=== PATIENT | female | born 1975 | race Caucasian/White ===

== ENCOUNTER 2023-09-12 19:45 | Emergency (ER) | payer OTHER ==
[2023-09-12 19:53] VITALS: RESP 18; BMI 24.1
[2023-09-12] MEDS ORDERED: SODIUM CHLORIDE 0.9% 500 ML INFUS.BAG IV ONE (20:55)
[2023-09-12] MEDS ORDERED: ACETAMINOPHEN 1000 MG/100 ML BAG IVPB ONE (20:55)
[2023-09-12] MEDS ORDERED: ONDANSETRON 4 MG/2 ML VIAL IVPUSH ONE (20:55)
[2023-09-12] MEDS ORDERED: ACETAMINOPHEN INJECTION 100 ML IVPB ONE (20:59)
[2023-09-12] MEDS ORDERED: ONDANSETRON 4 MG/2 ML VIAL ONE (20:59)
[2023-09-12 21:01] LABS: BASO % 0.4 % (0-2.0); EOS % 0.1 % (0-4.5); HEMATOCRIT 45.6 % (32.4-45.2); HEMOGLOBIN 15.6 GM/dL (10.7-15.3); LYMPH % 14.5 % (8-40); MCH 32.7 pg (25.7-33.7); MCHC 34.1 g/dl (32.0-36.0); MEAN CELL VOLUME 95.8 fl (80-96); MEAN PLT VOLUME 6.7 fl (7.5-11.1); MONO % 8.5 % (3.8-10.2); NEUT % 76.5 % (42.8-82.8); PLATELET COUNT 370 10^3/uL (134-434); RBC 4.76 M/mm3 (3.60-5.2); RDW 13.5 % (11.6-15.6); WHITE BLOOD COUNT 7.1 K/mm3 (4.0-10.0)
[2023-09-12 21:19] LABS: POTASSIUM 3.5 mmol/L (3.5-5.1)
[2023-09-12 21:20] LABS: CALCIUM 8.8 mg/dL (8.5-10.1)
[2023-09-12 21:22] LABS: ALBUMIN 3.7 g/dl (3.4-5.0); BLOOD UREA NITROGEN 7.2 mg/dL (7-18); MAGNESIUM 1.8 mg/dL (1.8-2.4)
[2023-09-12 21:25] LABS: CREATININE 0.6 mg/dL (0.55-1.3); PHOSPHOROUS 2.1 mg/dL (2.5-4.9)
[2023-09-12 21:26] LABS: BILIRUBIN,TOTAL 0.7 mg/dL (0.2-1); TOT PROT 8.1 g/dl (6.4-8.2)
[2023-09-12] MEDS ORDERED: NAPH,MB-DB/K PH,MBDB POWDER PACKET PO ONE (21:43)
[2023-09-12 22:36] VITALS: BP 184/89; PULSE 72; TEMP 97.8
[2023-09-12] MEDS ORDERED: BUPRENORPHINE/NALOXONE 8 MG/2 MG FILM PACKET SL ONE (23:15)
[2023-09-12] MEDS ORDERED: BUPRENORPHINE/NALOXONE 8 MG/2 MG FILM PACKET ONE (23:16)
== END 2023-09-13 01:10 | disposition home or self-care (01) ==
LOC: JER 19:45
PROC: 3E033NZ Introduction of Analgesics, Hypnotics, Sedatives into Peripheral Vein, Percutaneous Approach (ICD-10-PCS; principal; 2023-09-12)
PROC: 3E033GC Introduction of Other Therapeutic Substance into Peripheral Vein, Percutaneous Approach (ICD-10-PCS; 2023-09-12)
DX: M79.604 Pain in right leg (principal); M79.605 Pain in left leg; R06.02 Shortness of breath; R07.9 Chest pain, unspecified; I83.813 Varicose veins of bilateral lower extremities with pain; F11.23 Opioid dependence with withdrawal; Z20.822 Contact with and (suspected) exposure to COVID-19
CPT/HCPCS: 0241U-QW; 36415; 71045-TC-FY; 80053; 83735; 84100; 84484; 84703; 85025; 93005; 93010; 99285-25

== ENCOUNTER 2023-09-13 08:43 | Inpatient (IN) | payer OTHER ==
[2023-09-13] MEDS ORDERED: SODIUM CHLORIDE 0.9% 500 ML INFUS.BAG IV ONE (09:06)
[2023-09-13] MEDS ORDERED: ONDANSETRON 4 MG/2 ML VIAL IVPUSH ONE (09:06)
[2023-09-13] MEDS ORDERED: ACETAMINOPHEN 1000 MG/100 ML BAG IVPB ONE (09:06)
[2023-09-13] MEDS ORDERED: ACETAMINOPHEN INJECTION 100 ML IVPB ONE (09:12)
[2023-09-13] MEDS ORDERED: ONDANSETRON 4 MG/2 ML VIAL ONE (09:12)
[2023-09-13] MEDS ORDERED: BUPRENORPHINE/NALOXONE 8 MG/2 MG FILM PACKET SL ONE (09:21)
[2023-09-13 09:23] VITALS: BMI 25.0
[2023-09-13] MEDS ORDERED: BUPRENORPHINE/NALOXONE 8 MG/2 MG FILM PACKET ONE ×2 (09:32→15:21)
[2023-09-13 09:47] LABS: INR 1.05 (0.83-1.09); PROTHROMBIN TIME (PATIENT) 12.2 SEC (9.7-13.0)
[2023-09-13 09:48] LABS: BASO % 0.2 % (0-2.0); HEMATOCRIT 48.2 % (32.4-45.2); HEMOGLOBIN 16.6 GM/dL (10.7-15.3); LYMPH % 10.6 % (8-40); MCH 33.1 pg (25.7-33.7); MCHC 34.5 g/dl (32.0-36.0); MEAN CELL VOLUME 96.2 fl (80-96); MONO % 6.3 % (3.8-10.2); NEUT % 82.9 % (42.8-82.8); PLATELET COUNT 388 10^3/uL (134-434); RBC 5.01 M/mm3 (3.60-5.2); RDW 13.3 % (11.6-15.6); WHITE BLOOD COUNT 8.1 K/mm3 (4.0-10.0)
[2023-09-13 09:49] LABS: ACTIVATED PTT 30.5 SECONDS (25.2-36.5)
[2023-09-13 09:56] LABS: POTASSIUM 3.9 mmol/L (3.5-5.1)
[2023-09-13 09:58] LABS: BLOOD UREA NITROGEN 5.3 mg/dL (7-18); MAGNESIUM 1.6 mg/dL (1.8-2.4)
[2023-09-13 10:02] LABS: CREATININE 0.5 mg/dL (0.55-1.3)
[2023-09-13 10:05] LABS: BILIRUBIN,TOTAL 1.1 mg/dL (0.2-1); CALCIUM 10.2 mg/dL (8.5-10.1); TOT PROT 8.8 g/dl (6.4-8.2)
[2023-09-13] MEDS ORDERED: LORazepam 2 MG/ML SDV VIAL IVPUSH ONE (10:19)
[2023-09-13] MEDS ORDERED: chlordiazePOXIDE HCL 25 MG CAPSULE PO ONE (11:36)
[2023-09-13] MEDS ORDERED: chlordiazePOXIDE HCL 25 MG CAPSULE ONE (11:43)
[2023-09-13] MEDS ORDERED: PANTOPRAZOLE SODIUM 40 MG VIAL IVPUSH SCH (13:00)
[2023-09-13] MEDS: DEXTROSE 5%-0.45% SALINE 1,000 ML IV SCH (13:10)
[2023-09-13 15:00] LABS: BILIRUBIN,DIRECT 0.3 mg/dL (0.0-0.2)
[2023-09-13] MEDS ORDERED: DIVALPROEX SODIUM 250 MG TABLET E.C. ONE (15:21)
[2023-09-13] MEDS: DIVALPROEX SODIUM 500 MG TABLET E.C. PO SCH ×2 (15:24→21:23)
[2023-09-13] MEDS: BUPRENORPHINE/NALOXONE 8 MG/2 MG FILM PACKET SL SCH ×2 (15:24→21:27)
[2023-09-13] MEDS: FLUTICASONE/SALMETEROL (WIXELA) 100 MCG/50 MCG DISKUS IH SCH ×2 (15:27→22:13)
[2023-09-13] MEDS ORDERED: amLODIPine BESYLATE 5 MG TABLET (FP) ONE (16:16)
[2023-09-13] MEDS: amLODIPine BESYLATE 5 MG TABLET (FP) PO SCH (16:21)
[2023-09-13] MEDS ORDERED: cloNIDine HCL 0.1 MG TABLET PO ONE (21:06)
[2023-09-13 21:53] LABS: BASO % 0.3 % (0-2.0); EOS % 0.2 % (0-4.5); HEMATOCRIT 49.4 % (32.4-45.2); HEMOGLOBIN 16.6 GM/dL (10.7-15.3); LYMPH % 14.1 % (8-40); MCH 32.2 pg (25.7-33.7); MCHC 33.5 g/dl (32.0-36.0); MEAN CELL VOLUME 95.9 fl (80-96); MONO % 10.2 % (3.8-10.2); NEUT % 75.2 % (42.8-82.8); PLATELET COUNT 383 10^3/uL (134-434); RBC 5.15 M/mm3 (3.60-5.2); RDW 13.3 % (11.6-15.6); WHITE BLOOD COUNT 11.7 K/mm3 (4.0-10.0)
[2023-09-13] MEDS ORDERED: risperiDONE 1 MG TABLET PO SCH (22:00)
[2023-09-14] MEDS: ACETAMINOPHEN 1000 MG/100 ML BAG IVPB PRN ×2 (02:39→10:17)
[2023-09-14] MEDS: DEXTROSE 5%-0.45% SALINE 1,000 ML IV SCH (05:08)
[2023-09-14] MEDS: BUPRENORPHINE/NALOXONE 8 MG/2 MG FILM PACKET SL SCH ×3 (05:10→21:20)
[2023-09-14 08:38] LABS: BASO % 0.2 % (0-2.0); HEMATOCRIT 49.7 % (32.4-45.2); HEMOGLOBIN 16.8 GM/dL (10.7-15.3); MCH 32.7 pg (25.7-33.7); MCHC 33.9 g/dl (32.0-36.0); MEAN CELL VOLUME 96.6 fl (80-96); MEAN PLT VOLUME 7.6 fl (7.5-11.1); MONO % 10.7 % (3.8-10.2); NEUT % 74.1 % (42.8-82.8); PLATELET COUNT 369 10^3/uL (134-434); RBC 5.15 M/mm3 (3.60-5.2); RDW 13.3 % (11.6-15.6); WHITE BLOOD COUNT 9.2 K/mm3 (4.0-10.0)
[2023-09-14 08:38] LABS: EPI CELLS 7 /uL (0-25.1); HYALINE CASTS 0 /uL (0-3.1); PH,URINE 7.5 (5.0-8.0); URINE APPEARANCE CLEAR; URINE BACTERIA 256 /uL (0-1359); URINE BILIRUBIN NEGATIVE (NEGATIVE); URINE COLOR YELLOW; URINE GLUCOSE (UA) NEGATIVE (NEGATIVE); URINE KETONE NEGATIVE (NEGATIVE); URINE LEUK ESTERASE NEGATIVE (NEGATIVE); URINE NITRITE NEGATIVE (NEGATIVE); URINE PROTEIN NEGATIVE (NEGATIVE); URINE RBC 5 /uL (0-23.9); URINE WBC 1 /uL (0-25.8)
[2023-09-14 08:55] LABS: POTASSIUM 3.3 mmol/L (3.5-5.1)
[2023-09-14 08:59] LABS: ALBUMIN 3.2 g/dl (3.4-5.0); BLOOD UREA NITROGEN 6.5 mg/dL (7-18)
[2023-09-14 09:02] LABS: CREATININE 0.5 mg/dL (0.55-1.3)
[2023-09-14 09:03] LABS: TOT PROT 7.5 g/dl (6.4-8.2)
[2023-09-14] MEDS: PANTOPRAZOLE SODIUM 40 MG VIAL IVPUSH SCH (10:21)
[2023-09-14] MEDS: ONDANSETRON 4 MG/2 ML VIAL IVPUSH PRN ×2 (10:22→21:20)
[2023-09-14] MEDS: amLODIPine BESYLATE 5 MG TABLET (FP) PO SCH (10:22)
[2023-09-14] MEDS: FLUTICASONE/SALMETEROL (WIXELA) 100 MCG/50 MCG DISKUS IH SCH ×2 (10:22→21:21)
[2023-09-14] MEDS: DIVALPROEX SODIUM 500 MG TABLET E.C. PO SCH (10:22)
[2023-09-14] MEDS ORDERED: POTASSIUM CHLORIDE ORAL LIQUID 20 MEQ/15 ML PO ONE (15:00)
[2023-09-14] MEDS: hydrALAZINE HCL 10 MG TABLET PO SCH ×2 (16:10→21:20)
[2023-09-14] MEDS: chlordiazePOXIDE HCL 10 MG CAPSULE PO SCH (21:28)
[2023-09-14] MEDS: DIVALPROEX SODIUM 250 MG TABLET E.C. PO SCH (21:28)
[2023-09-14] MEDS: THIAMINE HCL 200 MG/2 ML VIAL IVPB SCH (21:28)
[2023-09-14] MEDS: PRAMIPEXOLE DIHYDROCHLORIDE 0.25 MG TABLET PO SCH (21:28)
[2023-09-15] MEDS: THIAMINE HCL 200 MG/2 ML VIAL IVPB SCH ×4 (06:52→23:25)
[2023-09-15] MEDS: chlordiazePOXIDE HCL 10 MG CAPSULE PO SCH ×2 (06:52→13:41)
[2023-09-15] MEDS: BUPRENORPHINE/NALOXONE 8 MG/2 MG FILM PACKET SL SCH ×3 (06:52→22:54)
[2023-09-15] MEDS: DEXTROSE 5%-0.45% SALINE 1,000 ML IV SCH (06:53)
[2023-09-15] MEDS: ONDANSETRON 4 MG/2 ML VIAL IVPUSH PRN (10:06)
[2023-09-15] MEDS: DIVALPROEX SODIUM 250 MG TABLET E.C. PO SCH ×2 (10:06→22:53)
[2023-09-15] MEDS: PRAMIPEXOLE DIHYDROCHLORIDE 0.25 MG TABLET PO SCH ×2 (10:06→22:53)
[2023-09-15] MEDS: PANTOPRAZOLE SODIUM 40 MG VIAL IVPUSH SCH (10:06)
[2023-09-15] MEDS: hydrALAZINE HCL 10 MG TABLET PO SCH ×2 (10:06→22:53)
[2023-09-15] MEDS: amLODIPine BESYLATE 5 MG TABLET (FP) PO SCH (10:06)
[2023-09-15] MEDS ORDERED: ACETAMINOPHEN 1000 MG/100 ML BAG IVPB PRN (10:07)
[2023-09-15 10:22] LABS: BASO % 0.3 % (0-2.0); EOS % 0.4 % (0-4.5); HEMATOCRIT 46.6 % (32.4-45.2); HEMOGLOBIN 16.1 GM/dL (10.7-15.3); LYMPH % 24.1 % (8-40); MCH 33.2 pg (25.7-33.7); MCHC 34.5 g/dl (32.0-36.0); MEAN CELL VOLUME 96.3 fl (80-96); MEAN PLT VOLUME 7.9 fl (7.5-11.1); MONO % 13.3 % (3.8-10.2); NEUT % 61.9 % (42.8-82.8); PLATELET COUNT 353 10^3/uL (134-434); RBC 4.83 M/mm3 (3.60-5.2); RDW 13.4 % (11.6-15.6); WHITE BLOOD COUNT 8.4 K/mm3 (4.0-10.0)
[2023-09-15 10:30] LABS: POTASSIUM 3.4 mmol/L (3.5-5.1)
[2023-09-15 10:35] LABS: CALCIUM 8.9 mg/dL (8.5-10.1)
[2023-09-15 10:36] LABS: ALBUMIN 3.2 g/dl (3.4-5.0); MAGNESIUM 1.5 mg/dL (1.8-2.4)
[2023-09-15 10:40] LABS: BILIRUBIN,TOTAL 0.5 mg/dL (0.2-1); CREATININE 0.6 mg/dL (0.55-1.3)
[2023-09-15] MEDS ORDERED: POTASSIUM CHLORIDE ORAL LIQUID 20 MEQ/15 ML PO ONE (12:32)
[2023-09-15] MEDS: FLUTICASONE/SALMETEROL (WIXELA) 100 MCG/50 MCG DISKUS IH SCH ×2 (13:43→22:56)
[2023-09-15] MEDS ORDERED: MAGNESIUM SULFATE IN WATER 2 GM/50 ML IVPB IVPB ONE (14:09)
[2023-09-15] MEDS: LISINOPRIL 5 MG TABLET PO SCH (14:31)
[2023-09-15] MEDS ORDERED: chlordiazePOXIDE HCL 10 MG CAPSULE PO PRN (18:33)
[2023-09-16 00:10] LABS: N-TERMINAL BNP 377.7 pg/ml (5-125)
[2023-09-16] MEDS: BUPRENORPHINE/NALOXONE 8 MG/2 MG FILM PACKET SL SCH ×3 (06:29→21:28)
[2023-09-16] MEDS: THIAMINE HCL 200 MG/2 ML VIAL IVPB SCH ×3 (07:22→21:29)
[2023-09-16] MEDS: PANTOPRAZOLE 40 MG TABLET PO SCH (10:17)
[2023-09-16] MEDS: MULTIVITAMINS (DAILY MVI) TABLET (FP) PO SCH (10:17)
[2023-09-16] MEDS: LISINOPRIL 5 MG TABLET PO SCH (10:17)
[2023-09-16] MEDS: PRAMIPEXOLE DIHYDROCHLORIDE 0.25 MG TABLET PO SCH ×2 (10:17→21:29)
[2023-09-16] MEDS: hydrALAZINE HCL 10 MG TABLET PO SCH ×2 (10:17→21:28)
[2023-09-16] MEDS: DIVALPROEX SODIUM 250 MG TABLET E.C. PO SCH ×2 (10:17→21:28)
[2023-09-16] MEDS: amLODIPine BESYLATE 5 MG TABLET (FP) PO SCH (10:17)
[2023-09-16] MEDS: FLUTICASONE/SALMETEROL (WIXELA) 100 MCG/50 MCG DISKUS IH SCH ×2 (10:18→21:31)
[2023-09-16] MEDS ORDERED: MELATONIN 5 MG TABLETS PO PRN (10:30)
[2023-09-16] MEDS: POLYETHYLENE GLYCOL (HEALTHYLAX) 3350 17 GM PACKET PO SCH (10:41)
[2023-09-16 11:42] LABS: OPIATES, URI NEGATIVE (NEGATIVE); PHENCYCLIDINE,URINE NEGATIVE (NEGATIVE); URINE BARBITURATES NEGATIVE (NEGATIVE)
[2023-09-16 11:43] LABS: COCAINE, UR NEGATIVE (NEGATIVE); METHADONE, UR NEGATIVE (NEGATIVE)
[2023-09-16 11:54] LABS: URINE AMPHETAMINES NEGATIVE (NEGATIVE); URINE BENZODIAZEPINES POSITIVE (NEGATIVE)
[2023-09-16 12:41] LABS: BASO % 0.6 % (0-2.0); EOS % 1.9 % (0-4.5); HEMATOCRIT 42.4 % (32.4-45.2); HEMOGLOBIN 14.1 GM/dL (10.7-15.3); LYMPH % 19.7 % (8-40); MCH 32.9 pg (25.7-33.7); MCHC 33.4 g/dl (32.0-36.0); MEAN CELL VOLUME 98.5 fl (80-96); MEAN PLT VOLUME 7.3 fl (7.5-11.1); MONO % 8.7 % (3.8-10.2); NEUT % 69.1 % (42.8-82.8); PLATELET COUNT 325 10^3/uL (134-434); RDW 13.4 % (11.6-15.6); WHITE BLOOD COUNT 7.8 K/mm3 (4.0-10.0)
[2023-09-16 12:58] LABS: POTASSIUM 3.5 mmol/L (3.5-5.1)
[2023-09-16 13:00] LABS: ALBUMIN 3.2 g/dl (3.4-5.0); CALCIUM 9.2 mg/dL (8.5-10.1)
[2023-09-16 13:01] LABS: BLOOD UREA NITROGEN 6.7 mg/dL (7-18); MAGNESIUM 2.5 mg/dL (1.8-2.4)
[2023-09-16 13:04] LABS: CREATININE 0.7 mg/dL (0.55-1.3)
[2023-09-16 13:05] LABS: BILIRUBIN,TOTAL 0.3 mg/dL (0.2-1); TOT PROT 6.9 g/dl (6.4-8.2)
[2023-09-16] MEDS: POTASSIUM CHLORIDE TABS 20 MEQ TABLET.ER (FP) PO SCH ×2 (13:39→21:28)
[2023-09-16] MEDS: DEXTROSE 5%-0.45% SALINE 1,000 ML IV SCH (16:27)
[2023-09-16] MEDS: ONDANSETRON 4 MG/2 ML VIAL IVPUSH PRN (16:30)
[2023-09-16] MEDS: ENOXAPARIN NA (PORCINE) 40 MG/0.4 ML DISP.SYRIN SQ SCH (16:30)
[2023-09-16] MEDS ORDERED: ACETAMINOPHEN 500 MG TABLET (FP) PO PRN (16:52)
[2023-09-16] MEDS: ACETAMINOPHEN 500 MG TABLET (FP) PO PRN (21:29)
[2023-09-17] MEDS: ACETAMINOPHEN 500 MG TABLET (FP) PO PRN (03:34)
[2023-09-17] MEDS: BUPRENORPHINE/NALOXONE 8 MG/2 MG FILM PACKET SL SCH ×3 (06:05→21:16)
[2023-09-17] MEDS: THIAMINE HCL 200 MG/2 ML VIAL IVPB SCH ×2 (06:05→13:44)
[2023-09-17] MEDS ORDERED: cloNIDine HCL 0.1 MG TABLET PO ONE (07:46)
[2023-09-17] MEDS: ENOXAPARIN NA (PORCINE) 40 MG/0.4 ML DISP.SYRIN SQ SCH (09:15)
[2023-09-17] MEDS: POLYETHYLENE GLYCOL (HEALTHYLAX) 3350 17 GM PACKET PO SCH (09:15)
[2023-09-17] MEDS: amLODIPine BESYLATE 5 MG TABLET (FP) PO SCH (09:16)
[2023-09-17] MEDS: POTASSIUM CHLORIDE TABS 20 MEQ TABLET.ER (FP) PO SCH ×2 (09:16→21:15)
[2023-09-17] MEDS: LISINOPRIL 5 MG TABLET PO SCH (09:16)
[2023-09-17] MEDS: PANTOPRAZOLE 40 MG TABLET PO SCH (09:16)
[2023-09-17] MEDS: PRAMIPEXOLE DIHYDROCHLORIDE 0.25 MG TABLET PO SCH ×2 (09:16→21:14)
[2023-09-17] MEDS: hydrALAZINE HCL 10 MG TABLET PO SCH ×2 (09:16→21:14)
[2023-09-17] MEDS: MULTIVITAMINS (DAILY MVI) TABLET (FP) PO SCH (09:16)
[2023-09-17] MEDS: FLUTICASONE/SALMETEROL (WIXELA) 100 MCG/50 MCG DISKUS IH SCH ×2 (09:18→21:17)
[2023-09-17 09:30] LABS: BASO % 0.5 % (0-2.0); EOS % 2.8 % (0-4.5); HEMATOCRIT 42.8 % (32.4-45.2); HEMOGLOBIN 14.2 GM/dL (10.7-15.3); LYMPH % 28.3 % (8-40); MCH 32.8 pg (25.7-33.7); MCHC 33.1 g/dl (32.0-36.0); MEAN CELL VOLUME 99.1 fl (80-96); MEAN PLT VOLUME 7.8 fl (7.5-11.1); MONO % 12.4 % (3.8-10.2); PLATELET COUNT 325 10^3/uL (134-434); RBC 4.32 M/mm3 (3.60-5.2); RDW 13.5 % (11.6-15.6); WHITE BLOOD COUNT 6.9 K/mm3 (4.0-10.0)
[2023-09-17 09:31] LABS: POTASSIUM 4.9 mmol/L (3.5-5.1)
[2023-09-17 09:46] LABS: BLOOD UREA NITROGEN 10.3 mg/dL (7-18); CALCIUM 9.1 mg/dL (8.5-10.1); MAGNESIUM 2.2 mg/dL (1.8-2.4)
[2023-09-17 09:49] LABS: CREATININE 0.6 mg/dL (0.55-1.3)
[2023-09-17 09:50] LABS: BILIRUBIN,TOTAL 0.4 mg/dL (0.2-1); TOT PROT 6.5 g/dl (6.4-8.2)
[2023-09-17] MEDS: DIVALPROEX SODIUM 250 MG TABLET E.C. PO SCH ×2 (10:42→23:17)
[2023-09-17] MEDS: THIAMINE HCL 100 MG TABLET (FP) PO SCH ×2 (16:26→21:15)
[2023-09-17] MEDS: DOCUSATE SODIUM 100 MG CAPSULE (FP) PO SCH (21:15)
[2023-09-18] MEDS: DOCUSATE SODIUM 100 MG CAPSULE (FP) PO SCH ×3 (06:18→21:48)
[2023-09-18] MEDS: BUPRENORPHINE/NALOXONE 8 MG/2 MG FILM PACKET SL SCH ×3 (06:18→21:46)
[2023-09-18] MEDS: FLUTICASONE/SALMETEROL (WIXELA) 100 MCG/50 MCG DISKUS IH SCH ×2 (10:04→21:49)
[2023-09-18] MEDS: POLYETHYLENE GLYCOL (HEALTHYLAX) 3350 17 GM PACKET PO SCH (10:05)
[2023-09-18] MEDS: POTASSIUM CHLORIDE TABS 20 MEQ TABLET.ER (FP) PO SCH ×2 (10:05→21:46)
[2023-09-18] MEDS: SENNOSIDES 8.6MG TABLET (FP) PO SCH ×2 (10:05→21:46)
[2023-09-18] MEDS: amLODIPine BESYLATE 5 MG TABLET (FP) PO SCH (10:05)
[2023-09-18] MEDS: PRAMIPEXOLE DIHYDROCHLORIDE 0.25 MG TABLET PO SCH ×2 (10:05→21:47)
[2023-09-18] MEDS: THIAMINE HCL 100 MG TABLET (FP) PO SCH ×2 (10:05→21:47)
[2023-09-18] MEDS: ENOXAPARIN NA (PORCINE) 40 MG/0.4 ML DISP.SYRIN SQ SCH (10:06)
[2023-09-18] MEDS: PANTOPRAZOLE 40 MG TABLET PO SCH (10:06)
[2023-09-18] MEDS: hydrALAZINE HCL 10 MG TABLET PO SCH ×2 (10:06→21:46)
[2023-09-18] MEDS: cloNIDine HCL 0.1 MG TABLET PO SCH ×2 (10:06→21:48)
[2023-09-18] MEDS: LISINOPRIL 5 MG TABLET PO SCH (10:06)
[2023-09-18] MEDS: MULTIVITAMINS (DAILY MVI) TABLET (FP) PO SCH (10:06)
[2023-09-18] MEDS: DIVALPROEX SODIUM 250 MG TABLET E.C. PO SCH ×2 (10:58→21:47)
[2023-09-19] MEDS: BUPRENORPHINE/NALOXONE 8 MG/2 MG FILM PACKET SL SCH ×2 (06:16→14:15)
[2023-09-19] MEDS: DOCUSATE SODIUM 100 MG CAPSULE (FP) PO SCH ×2 (06:16→14:15)
[2023-09-19] MEDS ORDERED: TRIMETHOBENZAMIDE HCL 200MG/2ML INJ IM ONE (08:16)
[2023-09-19] MEDS ORDERED: diphenhydrAMINE HCL 12.5 MG/5 ML UNIT-DOSE CUPS PO ONE (10:00)
[2023-09-19 10:27] VITALS: RESP 22
[2023-09-19] MEDS: PRAMIPEXOLE DIHYDROCHLORIDE 0.25 MG TABLET PO SCH (10:28)
[2023-09-19] MEDS: DIVALPROEX SODIUM 250 MG TABLET E.C. PO SCH (10:28)
[2023-09-19] MEDS: MULTIVITAMINS (DAILY MVI) TABLET (FP) PO SCH (10:29)
[2023-09-19] MEDS: hydrALAZINE HCL 10 MG TABLET PO SCH (10:29)
[2023-09-19] MEDS: PANTOPRAZOLE 40 MG TABLET PO SCH (10:29)
[2023-09-19] MEDS: SENNOSIDES 8.6MG TABLET (FP) PO SCH (10:29)
[2023-09-19] MEDS: POTASSIUM CHLORIDE TABS 20 MEQ TABLET.ER (FP) PO SCH (10:29)
[2023-09-19] MEDS: cloNIDine HCL 0.1 MG TABLET PO SCH (10:29)
[2023-09-19] MEDS: amLODIPine BESYLATE 5 MG TABLET (FP) PO SCH (10:29)
[2023-09-19] MEDS: LISINOPRIL 5 MG TABLET PO SCH (10:29)
[2023-09-19] MEDS: POLYETHYLENE GLYCOL (HEALTHYLAX) 3350 17 GM PACKET PO SCH (10:30)
[2023-09-19] MEDS: ENOXAPARIN NA (PORCINE) 40 MG/0.4 ML DISP.SYRIN SQ SCH (10:30)
[2023-09-19] MEDS: FLUTICASONE/SALMETEROL (WIXELA) 100 MCG/50 MCG DISKUS IH SCH (10:31)
[2023-09-19 14:49] VITALS: BP 101/67; PULSE 110; TEMP 97.8
== END 2023-09-19 16:00 | disposition home or self-care (01) | DRG 773 ==
LOC: JER 08:43 → JERBED 11:54 → OBSVTOIN 12:44 → J7W 20:45
PROVIDERS: ADMIT Internal Medicine; ATTEND Nurse Practitioner Acute Care
PROC: HZ2ZZZZ Detoxification Services for Substance Abuse Treatment (ICD-10-PCS; principal; 2023-09-13)
DX: F10.139 Alcohol abuse with withdrawal, unspecified (principal); F11.23 Opioid dependence with withdrawal; K92.0 Hematemesis; R56.9 Unspecified convulsions; E87.1 Hypo-osmolality and hyponatremia; F25.0 Schizoaffective disorder, bipolar type; K92.2 Gastrointestinal hemorrhage, unspecified; G25.81 Restless legs syndrome; I10 Essential (primary) hypertension; I16.0 Hypertensive urgency; J45.909 Unspecified asthma, uncomplicated; K29.20 Alcoholic gastritis without bleeding; F17.210 Nicotine dependence, cigarettes, uncomplicated
CPT/HCPCS: 36415; 70551-TC; 71045-TC-FY; 74177-TC; 76705-TC; 80053; 80061; 80307; 81003; 82248; 82607; 82962; 83036; 83540; 83550; 83690; 83735; 83880; 84100; 84443; 84484; 84703; 85025; 85610; 85730; 86850; 86900; 86901; 87086; 93005; 93010; 93306-TC; 99291; G0378; Q9967